=== PATIENT | female | born 1970 | race Caucasian/White ===

== ENCOUNTER → 2017-07-13 | Outpatient (CLI) | payer OTHER | END | disposition home or self-care (01) | LOC: MRI 14:20 | DX: M79.645 Pain in left finger(s) (principal) | CPT/HCPCS: 73218 ==

== ENCOUNTER → 2018-03-29 | Outpatient (CLI) | payer OTHER ==
[~2018-03-29] MED LIST: ACET-1550 PO; ACET500T33 PO; CETI10TA22 PO; DIPH25CA58 PO; IBUP200T44 PO; OXYC1TAB15 PO; TRAM50TA PO
--- NOTE | 2018-03-29 11:28 | RAD ---
Right knee, 3 views, 03/29/2018: HISTORY: Right knee pain, fall AP standing views of both knees as well as lateral and tangential patellar views on the right were obtained as requested. No fracture or dislocation is identified. No significant arthritic change is seen. There is a suggestion of a right knee joint effusion. IMPRESSION: 1. No acute bony abnormality is detected. 2. Probable right knee joint effusion. Electronically signed by: Han Bojorquez MD (03/29/2018 11:26 AM) [facility]
--- NOTE | 2018-03-29 14:00 | RAD ---
MR of the right knee HISTORY: Fell 2 days ago, pain and swelling. TECHNIQUE: Routine multiplanar sequences are obtained. FINDINGS: There is a tiny defect at the posteroinferior corner of the posterior horn the medial meniscus, compatible with a very small peripheral tear. No evidence of a lateral meniscal tear. Anterior and posterior cruciate ligaments are intact. Partial tear of the proximal medial collateral ligament. Iliotibial band unremarkable. Mild proximal thickening and heterogeneity of the fibular collateral ligament likely degeneration. No acute rupture or displacement. Biceps femoris tendon and popliteus tendon are intact. Extensor mechanism is intact. Large joint effusion. Full-thickness articular cartilage defect of the weightbearing lateral femoral condyle measures 11 mm x 10 mm. Similar size rectangular fragment located anterior to the distal anterior cruciate ligament is compatible with the displaced articular cartilage. Mild chondromalacia of the patellofemoral joint. Subcortical marrow edema/contusion of the lateral femoral condyle. Sprain of the medial retinacular structures. Diffuse soft tissue edema/hemorrhage around the knee. IMPRESSION: 1. Tiny peripheral tear at the posterior horn of the medial meniscus. 2. Partial tear proximal medial collateral ligament. 3. Full-thickness articular cartilage tear at the weightbearing lateral femoral condyle with displaced loose articular cartilage fragment anteriorly. 4. Subcortical marrow edema/contusion at the anterior lateral femoral condyle could be due to blunt trauma or transient lateral patellar dislocation. There is a strain of the medial stabilizers. Electronically signed by: Cl Cervantes MD (03/29/2018 1:57 PM) [email or web address]
== END | disposition home or self-care (01) ==
LOC: PMGORTHO 07:58
PROVIDERS: ATTEND Orthopaedic Surgery
DX: S83.411A Sprain of medial collateral ligament of right knee, initial encounter (principal); M22.41 Chondromalacia patellae, right knee; M25.461 Effusion, right knee
CPT/HCPCS: 73721

== ENCOUNTER 2018-04-05 08:18 | Day surgery (SDC) | payer OTHER ==
[~2018-04-05 08:18] MED LIST changes: +IV RINGERS,LACTATED 1000ML 1,000 ML IV SCH; +MORPHINE SULFATE 2 MG/ML VIAL. IV PRN; +ONDANSETRON PF 4 MG/2 ML VIAL. IV PRN; -OXYC1TAB15 PO; +PROCHLORPERAZINE 10 MG/2 ML VIAL. IV PRN; +fentaNYL PF VIAL 100 MCG/2 ML VIAL IV PRN
[2018-04-05] MEDS ORDERED: LIDOCAINE 2% PF 5 ML VIAL. ONE (08:19)
[2018-04-05] MEDS ORDERED: PROPOFOL 20 ML IV ONE (08:19)
[2018-04-05] MEDS ORDERED: DEXAMETHASONE SOD PHOS 20 MG/5 ML VIAL. ONE (08:21)
[2018-04-05] MEDS ORDERED: ONDANSETRON PF 4 MG/2 ML VIAL. ONE (08:21)
[2018-04-05] MEDS ORDERED: BUPIVAC MPF-EPI 0.5%-1:200000 30 ML VIAL. ONE (08:56)
[2018-04-05 09:44] LABS: U PREG PATIENT NEGATIVE (NEG)
[2018-04-05] MEDS ORDERED: fentaNYL PF VIAL 100 MCG/2 ML VIAL ONE (10:06)
[2018-04-05] MEDS ORDERED: SEVOFLURANE 31 TO 60 MINUTES. IH ONE (10:33)
[2018-04-05] MEDS: fentaNYL PF VIAL 100 MCG/2 ML VIAL IV PRN ×2 (10:57→11:03)
--- NOTE | 2018-04-05 11:02 | DISCH ---
DISCHARGE INSTRUCTIONS Condition on Discharge Condition on Discharge: Stable Activity After Discharge Activity Instructions for Disc: Other, see below ( slowly advance activities as tolerated, may return to work 04/09/2018 with seated duty only no lifting carrying stairs pushing or pulling) Lifting Instructions after Dis: No pulling or pushing, Do not lift >10 pounds Weight Bearing Status after Di: As tolerated Diet after Discharge Diet after Discharge: Regular Wound Incision Care Wound/Incision Care: Change dressing (May remove dressing in 3 days may then shower no soaking) Contacting the [facility] after DC Call your doctor for: Concerns you may have Follow-Up Follow up with: Paul 7-10 days JONAH TREADWELL MD Apr 05, 2018 11:02
[2018-04-05] MEDS ORDERED: OXYC1TAB15 PO (11:03)
[2018-04-05] MEDS: HYDROmorphone 2 MG/ML VIAL IV PRN ×2 (11:11→11:30)
[2018-04-05] MEDS ORDERED: oxyCODONE/APAP 5/325 1 TAB TABLET PO ONE (12:00)
[2018-04-05 12:30] VITALS: BP 143/68
--- NOTE | 2018-04-05 17:34 | PDOC4 ---
Operative Note Operative Note Date of surgery: 04/05/2018 Preoperative diagnosis: Loose body and meniscal tear right knee Postoperative diagnosis: Same with lateral meniscus tear, loose cartilage from lateral trochlear groove with full-thickness cartilage defect Operative procedure: Right knee arthroscopy partial lateral meniscectomy removal loose body from an enlarged medial portal and microfracture of full- thickness cartilage defect lateral trochlear groove Surgeon: Paul Anesthesia: Gen. 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 I covered with her the likely operative treatment with retrieval of the loose body appropriate treatment of the meniscus and the cartilage defect depending on the actual depth and location of the defect itself. All her questions were answered she wishes to proceed and understands the risks of possible infection continued pain nonhealing nerve or blood vessel damage medical or other at that anesthetic complications among others. Operative text: Patient was identified procedure verified patient placed in the supine position on the operating table. After adequate amounts of general anesthesia were administered a thigh tourniquet was placed on the right lower extremity and the right lower extremity was prepped and draped in standard sterile fashion. After timeout was performed patient procedure identified and verified a lateral portal was established a medial portal established using spinal needle localization and the knee joint was systematically examined. She was noted to have a large loose body in the intercondylar notch which was retrieved from an enlarged medial portal, the loose body noted to be approximately 1 1/2 cm in its greatest dimension. Medial meniscus was probed and found to be intact as was the anterior cruciate ligament. She did have a tear in the body area of the lateral meniscus which was trimmed back to stable tissue and radiused appropriately. The cartilage defect resulting from the loose cartilage body was in the lateral trochlear groove extending down toward the weightbearing aspect of the lateral femoral condyle and was full-thickness in nature. Microfracture was therefore carried out in this area and noted to have good bleeding from the defects in the subchondral bone generated by the microfracture awl. The knee was again thoroughly examined to ensure no more loose bodies were noted or other pathology. The knee was drained of arthroscopic fluid fat pad and portal areas were injected with 20 mL of half percent plain Marcaine. Portals was closed with nylon suture sterile dressings were applied patient was returned to recovery room in stable condition having tolerated procedure well JONAH TREADWELL MD Apr 05, 2018 17:33
== END 2018-04-05 12:35 | disposition home or self-care (01) ==
LOC: SURG 08:18
PROVIDERS: ATTEND Orthopaedic Surgery
DX: S83.281A Other tear of lateral meniscus, current injury, right knee, initial encounter (principal); M94.8X6 Other specified disorders of cartilage, lower leg; M67.88 Other specified disorders of synovium and tendon, other site; Z98.890 Other specified postprocedural states; Z72.89 Other problems related to lifestyle; Z79.899 Other long term (current) drug therapy; W00.0XXA Fall on same level due to ice and snow, initial encounter; Y93.89 Activity, other specified; Y92.481 Parking lot as the place of occurrence of the external cause; Y99.8 Other external cause status
CPT/HCPCS: 29879; 29881; 81025; A7015; C1782; J0696; J0780; J1100; J1170; J2001; J2405; J2704; J3010; J3490

== ENCOUNTER → 2020-02-27 | Outpatient (CLI) | payer OTHER ==
[~2020-02-27] MED LIST changes: -ACET-1550 PO; +ACET-1797 PO; -CETI10TA22 PO; +CETI10TA74 PO; -IV RINGERS,LACTATED 1000ML 1,000 ML IV SCH; -MORPHINE SULFATE 2 MG/ML VIAL. IV PRN; -ONDANSETRON PF 4 MG/2 ML VIAL. IV PRN; +OXYC1TAB15 PO; -PROCHLORPERAZINE 10 MG/2 ML VIAL. IV PRN; -fentaNYL PF VIAL 100 MCG/2 ML VIAL IV PRN
--- NOTE | 2020-02-27 13:47 | [facility]IC ---
STUDY: MRI of the right knee without contrast INDICATION: Pain after a recent fall. The patient reports previous surgery to the right knee. COMPARISON: 03/29/2018 TECHNIQUE: Multiplanar MR imaging of the right knee performed without the use of intravenous or intra -articular contrast. FINDINGS: Menisci: Signal changes along the posterior horn of the medial meniscus which could relate to previou s repair. No newly identified fluid signal tear defect. There is now complex tearing to varying exten t along the majority of the lateral meniscus with a degree maceration such as from the anterior body segment into the anterior horn. Cruciate ligaments: Similar signal and morphology of the cruciate ligaments with intact traversing fi bers well visualized. Collateral ligaments: Heterogeneous signal and morphology of the fibular collateral ligament though s lightly less so from the comparison. This could be degenerative or the sequela of prior injury. Edema -like signal along the lateral collateral ligament complex favored more likely related to lateral com partment arthrosis and the meniscal tearing rather than from injury. The medial collateral ligaments are intact as are the retinacula and IT band. Tendons: Heterogeneous T2 signal elevation at the distal quadriceps and to a lesser extent at the dis breanna patella are unchanged from the prior. Mild popliteus tendinosis. Mild semimembranosus tendinosis. No high-grade or full-thickness tear. Cartilage: Patellofemoral: Development of full-thickness chondral loss at the periphery of the lateral trochlea with prominent subchondral cystic change. Partial thickness chondrosis scattered elsewhere at the pat ellofemoral compartment has in general progressed. Lateral compartment: Significant progression of lateral compartment chondral loss with high-grade and full-thickness defects involving both the weightbearing and posterior nonweightbearing lateral femor al condyle and along portions of the lateral tibial plateau. Medial compartment: Progressive partial thickness chondrosis/chondral thinning without a well delinea mickey full-thickness defect. Bones: Degenerative remodeling of the lateral femoral condyle more so than lateral tibial plateau sub chondral bone plate with multifocal subjacent edema and cystic change. Progressive tricompartmental o steophyte formation largest off the lateral joint line. Miscellaneous: No significant knee joint effusion there is mild reactive synovitis. IMPRESSION: 1. Since the 2019 comparison, development of complex tearing of the lateral meniscus with areas of m aceration most notably at the anterior body segment into the anterior horn. No newly seen medial meni scal tear. 2. Significant progression of lateral more so than patellofemoral compartment chondrosis now with pr ominent high-grade/full-thickness defects at the lateral compartment with subchondral edema and cysti c change as well as a full-thickness defect at the lateral trochlea with a large subchondral cyst. La teral compartment joint space narrowing with remodeling/flattening of the subchondral bone plate. Pro gressive tricompartmental osteophyte formation largest off the lateral joint line. 3. No significant knee joint effusion but mild reactive synovitis. Electronically signed by: LAM BLUE MD (02/27/2020 1:44 PM) [id number]
== END ==
LOC: KCIC MRI 09:59
PROVIDERS: ATTEND Orthopaedic Surgery
DX: S83.271A Complex tear of lateral meniscus, current injury, right knee, initial encounter (principal); M25.761 Osteophyte, right knee; M65.88 Other synovitis and tenosynovitis, other site; M25.861 Other specified joint disorders, right knee; X58.XXXA Exposure to other specified factors, initial encounter; Y93.89 Activity, other specified; Y92.89 Other specified places as the place of occurrence of the external cause; Y99.8 Other external cause status
CPT/HCPCS: 73721